=== PATIENT | female | born 1955 | race Caucasian/White ===

== ENCOUNTER → 2016-12-03 | Outpatient (CLI) | payer BC ==
--- NOTE | 2016-12-03 12:23 | MA ---
Diagnostic Bilateral Mammogram With Tomosynthesis Clinical Indications: Medial right breast pain Technique: Standard digital cephalocaudal and tomosynthesis mediolateral oblique projections are obt ained. A digital true-lateral view is performed of the right breast. The digital images are processed by the [employer] computer aided detection system. Comparison: October 2015, May 2014, May 2013, May 2012 and December 2010 Breast density: C; The breast tissue is heterogeneously dense, which could obscure detection of small masses. Findings: CAD was reviewed. No suspicious findings are identified. Specifically no change in the inn er right breast. Impression: Ultrasound is required to evaluate the area of pain in the inner right breast. Recommendation: BI-RADS 0: Needs additional imaging evaluation, right breast.. [facility] will send a result letter to the patient.
--- NOTE | 2016-12-03 13:02 | US ---
Right Breast Ultrasound History: Medial breast pain Comparison: diagnostic mammogram earlier (normal) Technique: Ultrasound exam of the medial right breast with a high frequency linear transducer. Findings: No solid or cystic abnormality is identified. There is no sonographic architectural distort ion. Impression: Negative mammogram and ultrasound. Recommendation: The patient's breast pain should be managed clinically. BI-RADS 1. Negative.
== END ==
LOC: FIMAGING 11:36
PROVIDERS: ATTEND Obstetrics & Gynecology
DX: N64.4 Mastodynia (principal)
CPT/HCPCS: G0204; G0279

== ENCOUNTER → 2017-12-25 | Outpatient (CLI) | payer BC | LOC: FIMAGING 14:03 | PROVIDERS: ATTEND Obstetrics & Gynecology | DX: Z12.31 Encounter for screening mammogram for malignant neoplasm of breast (principal); Z80.3 Family history of malignant neoplasm of breast ==

== ENCOUNTER → 2018-08-14 | Outpatient (CLI) | payer BC | LOC: FIMAGING 15:37 | PROVIDERS: ATTEND Family Medicine | DX: R60.0 Localized edema (principal) ==

== ENCOUNTER → 2018-11-10 | Outpatient (CLI) | payer BC | LOC: FIMAGING 10:00 | PROVIDERS: ATTEND Family Medicine | DX: Z13.820 Encounter for screening for osteoporosis (principal); M81.0 Age-related osteoporosis without current pathological fracture; Z78.0 Asymptomatic menopausal state ==

== ENCOUNTER → 2018-12-28 | Outpatient (CLI) | payer BC | LOC: FIMAGING 10:40 | PROVIDERS: ATTEND Obstetrics & Gynecology | DX: Z12.31 Encounter for screening mammogram for malignant neoplasm of breast (principal); Z80.3 Family history of malignant neoplasm of breast ==